=== PATIENT | female | born 2005 | race Hispanic/Latino ===

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

== ENCOUNTER 2024-12-08 21:49 | Emergency (ER) | payer SELFPAY ==
[~2024-12-08] VITALS: Ht 149.9 cm; Wt 71.2 kg
[~2024-12-08 21:49] MED LIST changes: +CLIN-141 PO; +PRED20TA3 PO
--- NOTE | 2024-12-08 21:54 | ERN ---
ED Note History of Present Illness Stated Complaint: C/O HEADACHE W/N X V Chief Complaint: Headache Time Seen by MD: 21:52 Time Seen by Midlevel: 21:52 Dictation: Patient was seen and evaluated by PA. Allergies: Coded Allergies: No Known Drug Allergies (Unverified Allergy, Unknown, 06/24/20) Home Meds Active Scripts Clindamycin HCl (Clindamycin HCl) 300 Mg Capsule, 1 CAP PO QID for 10 Days, #40 CAP 0 Refills Prov:ENRIQUEZELTONDAPHNE PROPERTY CUSTODIAN 03/27/23 Prednisone (Prednisone) 20 Mg Tablet, 2 TAB PO DAILY for 5 Days, #10 TAB 0 Refills Prov:NIESHA ENRIQUEZPE PROPERTY CUSTODIAN 03/27/23 Ibuprofen (Motrin/Advil) 800 Mg Tab, 800 MG PO TID, #30 TAB Prov:TORIE WATKINS MD 03/14/23 Cefuroxime Axetil (Cefuroxime) 500 Mg Tablet, 500 MG PO BID, #20 TAB Prov:TORIE WATKINS MD 03/14/23 Past Medical History Dictation Patient is a 19-year-old female presenting to the emergency department for evaluation with a left-sided headache that started earlier today. Patient states her headache feels like a migraine however she has never been diagnosed with a migraine. She does report one episode of vomiting prior to arrival. Past Medical History: No Pertinent History Surgical History: None Family History: Negative Social History: Negative History: Not Applicable RN Note Reviewed/Agreed w/PFSH: Yes Review of System Dictation CONSTITUTIONAL: Negative except for HPI HEAD/FACE: Negative except for HPI EENT: Negative except for HPI RESPIRATORY: Negative except for HPI GASTROINTESTINAL/ABDOMINAL: Negative except for HPI GENITOURINARY: Negative except for HPI MUSCULOSKELETAL: Negative except for HPI INTEGUMENTARY: Negative except for HPI NEUROLOGICAL/PSYCH: Negative except for HPI HEMATOLOGIC/LYMPHATIC: Negative except for HPI All Systems Negative, Except as noted above. 13 point review of systems assessed and all negative except for above. Initial Vital Sign VS Vital Signs Date Time Temp Pulse Resp B/P (MAP) Pulse Ox O2 Delivery O2 Flow Rate FiO2 12/08/24 21:51 98.2 89 20 113/60 98 Room Air 12/08/24 22:03 0 21 Physical Exam Dictation Vital Signs reviewed General Appearance: Alert, oriented x 3, no acute distress, well developed, nourished. Head and Face: non-traumatic. Eyes: PERRL, pink conjunctivas, eyelid no trauma, anterior chamber with arcus senilis. Ears: Pinnas intact and no signs of trauma or erythema ear canals clear and no discharge TM no erythema Nose: No discharge, no bleeding. Oropharynx: Mouth normal, tongue pink, pharynx clear,no erythema, tonsils no exudates, no abscesses noted, mucous membrane moist Neck: Supple, non-tender, no thyromegaly, no masses, no JVD, no bruits Breast:Deferred Chest:No tenderness, no crepitus, no paradoxical movement, no retractions Lungs:Clear, well-ventilated, symmetric, no rales, no wheezing, no rhonchi, no stridor, good breath sounds bilaterally Heart: Regular rate, regular rhythm, no murmur, no gallops Vascular: no peripheral edema, Abdomen: Soft, positive bowel sounds, nondistended, no guarding, nontender, no rebound, no masses no hepatomegaly, no splenomegaly, no Hamm's sign, no hernias. Rectal: Deferred Genital: Deferred Neurological: Normal speech, motor function intact, sensory function intact Musculoskeletal: Neck nontender, full range of motion, back nontender, full range of motion, Extremities: nontender, full range of motion Skin: Color pink, dry, no turgor, no rash, no lacerations, no abrasions, no contusions. Lymphatic: Deferred Results (Laboratory/Radiology) Laboratory/Radiology Laboratory Tests Test 12/08/24 22:55 White Blood Count 16.5 K/uL (4.8-10.8) H Red Blood Count 4.64 MIL/uL (4.00-5.50) Hemoglobin 13.6 g/dL (12.0-16.0) Hematocrit 39.8 % (36-48) Mean Corpuscular Volume 85.8 fL (80-100) Mean Corpuscular Hemoglobin 29.3 pg (27.0-33.0) Mean Corpuscular Hemoglobin Concent 34.2 g/dL (32.0-36.0) Red Cell Distribution Width 12.8 % (11.0-15.5) Platelet Count 359 K/uL (130-400) Mean Platelet Volume 10.5 fL (7.5-10.5) Immature Granulocyte % (Auto) 0.5 % (0-1) Neutrophils (%) (Auto) 76.0 % (40.0-77.0) Lymphocytes (%) (Auto) 15.9 % (21.0-51.0) L Monocytes (%) (Auto) 4.5 % (3.0-13.0) Eosinophils (%) (Auto) 2.7 % (0.0-8.0) Basophils (%) (Auto) 0.4 % (0.0-5.0) Neutrophils # (Auto) 12.6 K/uL (1.8-7.7) H Lymphocytes # (Auto) 2.6 K/uL (1.0-4.8) Monocytes # (Auto) 0.8 K/uL (0.1-1.0) Eosinophils # (Auto) 0.45 K/uL (0.00-0.70) Basophils # (Auto) 0.06 K/uL (0.00-0.20) Absolute Immature Granulocyte (auto 0.08 K/uL (0-1) Nucleated Red Blood Cells 0.0 % (0.0-0.19) Sodium Level 135 mmol/L (136-145) L Potassium Level 4.1 mmol/L (3.5-5.1) Chloride Level 101 mmol/L (101-111) Carbon Dioxide Level 28 mmol/L (21-32) Blood Urea Nitrogen 7 mg/dL (7-18) Creatinine 0.7 mg/dL (0.5-1.0) Glomerular Filtration Rate Calc 127 mL/min (>90) Random Glucose 105 mg/dL (70-105) Total Calcium 9.3 mg/dL (8.5-10.1) Serum Test, Qualitative NEGATIVE (NEGATIVE) Labs Reviewed?: Yes ED Course ED Course Orders Procedure Category Date Status Time 0.9%Nacl 1000ml (Ns PHA 12/08/24 Complete 1000ml) 23:00 Ketorolac PHA 12/08/24 Complete Tromethamine 15mg/Ml 23:00 Ondansetron 4mg Inj PHA 12/08/24 Complete (Zofran 4mg Inj) 23:00 Diphenhydramine Hcl PHA 12/08/24 Complete (Benadryl Inj) 23:00 Cbc With Differential LAB 12/08/24 Complete 22:36 Basic Metabolic Panel LAB 12/08/24 Complete 22:36 Testing, LAB 12/08/24 Complete Serum Hcg 22:36 Current Medications Medications (Trade) Dose Ordered Sig/Jf Route PRN Reason Start Time Stop Time Status Last Admin Dose Admin Diphenhydramine HCl (BENAdryl INJ) 25 mg ONCE ONCE IV 12/08/24 23:00 12/08/24 23:01 DC 12/08/24 22:41 Ketorolac Tromethamine (toRADol) 15 mg ONCE ONCE IV 12/08/24 23:00 12/08/24 23:01 DC 12/08/24 23:17 Ondansetron HCl (zoFRAN 4MG INJ) 4 mg ONCE ONCE IVP 12/08/24 23:00 12/08/24 23:01 DC 12/08/24 22:41 Sodium Chloride 1,000 ml @ 0 mls/hr ONCE ONCE IV 12/08/24 23:00 12/08/24 23:01 DC 12/08/24 22:42 Vital Signs Date Time Temp Pulse Resp B/P (MAP) Pulse Ox O2 Delivery O2 Flow Rate FiO2 12/08/24 23:58 98.4 88 12 104/63 99 Room Air* 0 21 12/08/24 22:03 98.1 89 20 113/60 98 Room Air* 0 21 12/08/24 21:51 98.2 89 20 113/60 98 Room Air Medical Decision Making MDM MDM: Differential diagnosis: Migraine headache, unspecified headache, dehydration There are no social concerns with this patient. Prescription drug management Prescriptions will include: None Medical management and examination interpretation discussions were had by me with other qualified healthcare professionals as indicated for the patient's care. DX & DISP Disposition: Discharge Departure Impression: Primary Impression: Headache, unspecified Condition: Stable Additional Instructions: Patient was seen and evaluated by PA Referrals: DIONICIO ROMERO DO (PCP) I have reviewed the case, and I agree with, Diagnosis and Plan I performed the substantive portion of the visit. I have reviewed and personally made and approve the management plan that is documented in the note by myself or the NIA. I acknowledge for responsibility for the patient's management plan. MARY ABRAHAM MD Dec 08, 2024 21:53 KIA NIXON Dec 09, 2024 00:00
[2024-12-08] MEDS: 0.9%NACL 1000ML 1,000 ML IV ONE (22:42)
[2024-12-08 23:09] LABS: IMMATURE GRANULOCYTE ABSOLUTE 0.08 K/uL (0-1); NUCLEATED RED BLOOD CELLS 0.0 % (0.0-0.19); PLATELET COUNT (AUTO) 359 K/uL (130-400); RED BLOOD CELL COUNT(AUTO) 4.64 MIL/uL (4.00-5.50); RED CELL DISTRIBUTION WIDTH 12.8 % (11.0-15.5); WHITE BLOOD COUNT (AUTO) 16.5 K/uL (4.8-10.8)
[2024-12-08 23:13] LABS: CREATININE 0.7 mg/dL (0.5-1.0); GLOMERULAR FILTR. RATE CALC 127.0 mL/min (>90); GLUCOSE,RANDOM 105.0 mg/dL (70-105); SODIUM SERUM 135.0 mmol/L (136-145); UREA NITROGEN, BLOOD 7.0 mg/dL (7-18)
[2024-12-08 23:58] VITALS: BP 104/63; PULSE 88; RESP 12; TEMP 98.4; O2SAT 99
== END 2024-12-09 00:14 | disposition home or self-care (01) ==
LOC: EDH 21:49
DX: R51.9 Headache, unspecified (principal); Z79.1 Long term (current) use of non-steroidal anti-inflammatories (NSAID); Z79.52 Long term (current) use of systemic steroids
CPT/HCPCS: 99284; 96374; 96375; 96361; 80048; 84703; 85025; 36415; J1885; J1200; J7030; J2405